=== PATIENT | male | born 1960 | race Caucasian/White ===

== ENCOUNTER 2017-11-09 09:25 | Emergency (ER) | payer OTHER ==
--- NOTE | 2017-11-09 09:32 | ED Physician Documentation ---
PD HPI CHEST PAIN - Stated complaint Stated Complaint: CHEST TIGHTNESS - History obtained from History obtained from: Patient, Family - History of Present Illness Timing - onset: How many hours ago (1-2) Timing - onset during: Light activity Timing - duration: Hours (1-2) Timing - details: Abrupt onset (while mowing the lawn), Still present Quality: Tightness, Aching, Pain Location: Substernal, Left chest Radiation: No: Jaw, Neck, Back, Abdominal Improved by: Rest Worsened by: No: Inspiration, Movement, Palpation Associated symptoms: Shortness of air, Nausea. No: Feeling faint / dizzy, Palpitations, Cough Similar symptoms before: No diagnosis (had similar but less severe symptoms 2 days ago while mowing, and it went away with rest. [place] okay yesterday.) Recently seen: Not recently seen Review of Systems Constitutional: denies: Fever, Chills Nose: denies: Rhinorrhea / runny nose, Congestion Throat: denies: Sore throat Cardiac: reports: Chest pain / pressure. denies: Palpitations, Pedal edema, Calf pain Respiratory: denies: Dyspnea, Cough, Wheezing GI: reports: Nausea. denies: Abdominal Pain, Vomiting, Diarrhea : denies: Dysuria Skin: denies: Rash, Lesions Musculoskeletal: denies: Neck pain, Back pain Neurologic: reports: Generalized weakness. denies: Focal weakness, Numbness, Near syncope Psychiatric: denies: Insomnia Immunocompromised: denies: Immunocompromised PD PAST MEDICAL HISTORY - Past Medical History Cardiovascular: Hypertension, High cholesterol Respiratory: None Neuro: None Endocrine/Autoimmune: None - Present Medications Home Medications: Ambulatory Orders Medication Instructions Recorded Confirmed Aspirin 11/09/17 Lisinopril 11/09/17 Simvastatin [Zocor] 11/09/17 - Allergies Allergies/Adverse Reactions: Allergies Allergy/AdvReac Type Severity Reaction Status Date / Time No Known Drug Allergies Allergy Verified 11/09/17 09:34 - Family History Family history: reports: CAD PD ED PE NORMAL - Vitals Vital signs reviewed: Yes - General General: Alert and oriented X 3, Well developed/nourished, Other (apears uncomfortable) - HEENT HEENT: Moist mucous membranes, Pharynx benign - Neck Neck: Supple, no meningeal sign, No adenopathy - Cardiac Cardiac: RRR, No murmur - Respiratory Respiratory: Clear bilaterally, Other (no chestwall tenderness) - Abdomen Abdomen: Soft, Non tender - Back Back: No CVA TTP - Derm Derm: Normal color, Warm and dry - Extremities Extremities: No deformity, No tenderness to palpate, Normal ROM s pain, No edema , No calf tenderness / cord - Neuro Neuro: Alert and oriented X 3, No motor deficit, Normal speech - Psych Psych: Normal mood, Normal affect Results - Vitals Vitals: Vital Signs - 24 hr 11/09/17 11/09/17 09:29 10:35 Temperature 35.7 C L Heart Rate 69 75 Respiratory 18 18 Rate Blood Pressure 140/99 H 108/80 O2 Saturation 98 95 Oxygen O2 Source Room air - EKG (time done) 09:30 Rate: Rate (enter#) (63) Rhythm: NSR [place]: Normal Intervals: Normal CA QRS: Normal Ischemia: Normal ST segments. No: ST elevation c/w ischemia, ST depression, Hyperacute T waves Compare to prior EKG: Old EKG unavailable Computer interpretation: Agree with computer repeat Rhythm: NSR Intervals: Normal CA QRS: Normal Ischemia: ST elevation c/w ischemia (inferior leads), ST depression (anterior) Compare to prior EKG: Changed from prior EKG - Labs Labs: Laboratory Tests 11/09/17 11/09/17 11/09/17 09:45 09:45 09:45 WBC 6.8 RBC 5.43 Hgb 15.7 Hct 46.6 MCV 85.9 MCH 29.0 MCHC 33.8 RDW 14.5 Plt Count 293 MPV 7.0 L Neut # 4.1 Lymph # 2.0 [place] # 0.6 Eos # 0.1 Baso # 0.1 Absolute Nucleated RBC 0.00 Nucleated RBC % 0.0 Sodium 137 Potassium 3.8 Chloride 104 Carbon Dioxide 26 Anion Gap 7.0 BUN 15 Creatinine 1.0 Estimated GFR (MDRD) 78 L Glucose 154 H Calcium 9.1 Total Bilirubin 0.4 AST 31 ALT 46 Alkaline Phosphatase 77 Troponin I 0.04 Total Protein 7.7 Albumin 4.6 Globulin 3.1 Albumin/Globulin Ratio 1.5 Lipase 23 - Rads (name of study) chest Radiology: Prelim report reviewed (no acute findings on chest) PD MEDICAL DECISION MAKING - ED course Complexity details: re-evaluated patient (having increased pain from 11/21 to and appears sweaty. Repeat ECG showing now evident inferior ST eelvations with repicprocal changes anteriorly. ), considered differential (Concern for ACS with initial history and symptoms. He had increase in chest pain soon after and repeat ECG showing inferior STEMI. Given Morphine, Nitro, ASA with improvement in his pain. Also given Plavix and started Heparin. ), d/w patient, d/w advanced manufacturing consultant (Dr. Fonseca, ED MD at [facility], who accepts [facility] for STEMI protocol. ) - Critical Care Time(min): 30 Time Includes: Direct patient care, Reassess patient, Document care, Coordinate care, Medical consult Data interpretation: Labs, CXR Procedures excluded from critical care time: EKG Departure - Departure Disposition: 02 Transfer Acute Care Hosp Clinical Impression: ST elevation myocardial infarction (STEMI) of inferior wall Chest pain Qualifiers: Chest pain type: precordial pain Qualified Code(s): R07.2 - Precordial pain Condition: Serious Record reviewed to determine appropriate education?: Yes
[2017-11-09 09:51] LABS: BASOPHILS # (AUTO) 0.1 10^3/uL (0.0-0.1); BASOPHILS % (AUTO) 0.7 %; EOSINOPHILS # (AUTO) 0.1 10^3/uL (0.0-0.7); EOSINOPHILS % (AUTO) 1.3 %; HGB - HEMOGLOBIN 15.7 g/dL (14.0-18.0); LYMPHOCYTES % (AUTO) 29.8 %; MEAN CORPUSCULAR HGB CONC 33.8 g/dL (32.0-36.0); MEAN CORPUSCULAR VOLUME 85.9 fL (80.0-94.0); MONOCYTES # (AUTO) 0.6 10^3/uL (0.0-1.0); MONOCYTES % (AUTO) 8.3 %; NEUTROPHILS # (AUTO) 4.1 10^3/uL (1.5-6.6); NEUTROPHILS % (AUTO) 59.9 %; PLT - PLATELET COUNT 293 10^3/uL (130-450); RED BLOOD COUNT 5.43 10^6/uL (4.70-6.10); RED CELL DISTRIBUTION WIDTH 14.5 % (12.0-15.0); WHITE BLOOD COUNT 6.8 x10^3/uL (4.8-10.8)
[2017-11-09 10:05] LABS: ALBUMIN 4.6 g/dL (3.2-5.5); ALBUMIN/GLOBULIN RATIO 1.5 (1.0-2.2); BILIRUBIN,TOTAL 0.4 mg/dL (0.2-1.0); CALCIUM 9.1 mg/dL (8.5-10.3); TOTAL PROTEIN 7.7 g/dL (6.7-8.2)
[2017-11-09] MEDS ORDERED: MAG HYDROX/AL HYDROX/SIMETH 30 ML UDC PO STA (10:09)
[2017-11-09] MEDS ORDERED: MORPHINE 10 MG/ML VIAL IVP STA (10:09)
[2017-11-09] MEDS ORDERED: ONDANSETRON 4 MG/2 ML VIAL IVP STA (10:09)
[2017-11-09] MEDS ORDERED: NITROGLYCERIN SL 0.4 MG TABLET SL STA (10:09)
[2017-11-09] MEDS ORDERED: LIDOCAINE VISCOUS 2% 15 ML UDC MM STA (10:09)
[2017-11-09] MEDS ORDERED: HEPARIN 5,000 UNIT/ML VIAL IVP STA (10:23)
[2017-11-09] MEDS ORDERED: CLOPIDOGREL 300 MG TABLET PO STA (10:23)
[2017-11-09] MEDS ORDERED: HEPARIN 25000UNITS/500ML (D5W) 25,000 UNIT/500 ML BAG IV STA (10:23)
[2017-11-09] MEDS ORDERED: NITROGLYCERIN 2% PASTE TOP STA (10:26)
--- NOTE | 2017-11-09 10:26 | XRAY Report ---
EXAM: CHEST RADIOGRAPHY EXAM DATE: 11/09/2017 09:56 AM. CLINICAL HISTORY: Chest pain. Left upper chest tightness. COMPARISON: None. TECHNIQUE: 2 views. FINDINGS: Lungs/Pleura: No focal opacities evident. No pleural effusion. No pneumothorax. Normal volumes. Mediastinum: Probable aortic arch atherosclerotic calcification. Other: None. IMPRESSION: No consolidation evident. [facility] Referring Provider Line: [phone] SITE ID: [id number]
[2017-11-09] MEDS ORDERED: SODIUM CHLORIDE 0.9% 500 ML IV ONE (10:27)
[2017-11-09] MEDS ORDERED: ASPIRIN CHEW 81 MG TABLET ONE (10:33)
[2017-11-09] MEDS ORDERED: HEPARIN 5,000 UNIT/ML VIAL ONE (10:34)
[2017-11-09] MEDS ORDERED: HEPARIN 25000UNITS/500ML (D5W) 25,000 UNIT/500 ML BAG IV ONE (10:34)
[2017-11-09] MEDS ORDERED: CLOPIDOGREL 300 MG TABLET PO ONE (10:34)
[2017-11-09 10:36] VITALS: BP 108/80
[2017-11-09] MEDS ORDERED: ASPIRIN CHEW 81 MG TABLET PO STA (10:36)
== END 2017-11-09 10:46 | disposition short-term general hospital (02) ==
LOC: ED 09:25
DX: I21.19 ST elevation (STEMI) myocardial infarction involving other coronary artery of inferior wall (principal); R07.2 Precordial pain; I10 Essential (primary) hypertension; E78.00 Pure hypercholesterolemia, unspecified; Z82.49 Family history of ischemic heart disease and other diseases of the circulatory system
CPT/HCPCS: 36415; 71046; 80053; 83690; 84484; 85025; 93005; 96365; 96375; 96376; 99284; 99291; A9270

== ENCOUNTER 2017-11-09 10:46 | Outpatient (CLI) | payer OTHER | END 2017-11-09 10:47 | disposition short-term general hospital (02) | LOC: EMS 10:46 | PROVIDERS: ATTEND Surgery | DX: R07.9 Chest pain, unspecified (principal) | CPT/HCPCS: A0425; A0427 ==

== ENCOUNTER 2021-11-26 00:47 | Emergency (ER) | payer OTHER ==
[2021-11-26 01:36] LABS: BASOPHILS % (AUTO) 0.3 %; EOSINOPHILS # (AUTO) 0.2 10^3/uL (0.0-0.7); EOSINOPHILS % (AUTO) 2.6 %; HCT - HEMATOCRIT 41.7 % (42.0-52.0); LYMPHOCYTES # (AUTO) 2.7 10^3/uL (1.5-3.5); LYMPHOCYTES % (AUTO) 38.6 %; MEAN CORPUSCULAR HEMOGLOBIN 29.2 pg (27.0-31.0); MEAN CORPUSCULAR HGB CONC 33.6 g/dL (32.0-36.0); MEAN CORPUSCULAR VOLUME 87.1 fL (80.0-94.0); MEAN PLATELET VOLUME 9.1 fL (7.4-11.4); MONOCYTES # (AUTO) 0.6 10^3/uL (0.0-1.0); MONOCYTES % (AUTO) 9.2 %; NEUTROPHILS # (AUTO) 3.4 10^3/uL (1.5-6.6); NEUTROPHILS % (AUTO) 49.3 %; PLT - PLATELET COUNT 309 10^3/uL (130-450); RED BLOOD COUNT 4.79 10^6/uL (4.70-6.10); RED CELL DISTRIBUTION WIDTH 13.5 % (12.0-15.0)
[2021-11-26 01:50] LABS: ALBUMIN 4.2 g/dL (3.2-5.5); ALBUMIN/GLOBULIN RATIO 1.5 (1.0-2.2); BILIRUBIN,TOTAL 0.3 mg/dL (0.2-1.0); CALCIUM 9.2 mg/dL (8.5-10.3); POTASSIUM 3.8 mmol/L (3.5-5.0)
--- NOTE | 2021-11-26 01:54 | XRAY Report ---
PROCEDURE: Chest 1 View X-Ray INDICATIONS: Chest pain TECHNIQUE: One view of the chest was acquired. COMPARISON: Prior two-view chest 11/09/2017 reviewed. FINDINGS: Surgical changes and devices: None. Lungs and pleura: No pleural effusions or pneumothorax. Lungs are clear. Mediastinum: Mediastinal contours appear normal. Heart size is normal. Bones and chest wall: No suspicious bony lesions. Overlying soft tissues appear unremarkable. IMPRESSION: Normal for age, source of current symptoms is not seen. Reviewed by: Farshad Navarro MD on 11/26/2021 1:53 AM PDT Approved by: Farshad Navarro MD on 11/26/2021 1:53 AM PDT Station ID: [id number]
--- NOTE | 2021-11-26 03:06 | ED Physician Documentation ---
PD HPI DYSPNEA - Stated complaint Stated Complaint: SOA - Chief complaint Chief Complaint: Resp - History obtained from History obtained from: Patient - Additional information Additional information: Patient is a 61-year-old male with a history significant for coronary artery disease with 3 previous stents presenting for evaluation ofFeeling something stuck in his throat since 11:30 PM. Patient had chicken and Porridge for dinner. He was feeling well until Later this evening and felt that he had something in his throat.He tried to lay back and go to sleep but this made him feel short of breath. His had him eat a banana to try and clear something from his throat and he was able to do so. He reports that the sensation in his throat has cleared and he no longer feels short of breath. He denies ever having any episodes of chest pain.He denies nausea or vomiting.He denies coughing, fever, congestion.He denies having any further trouble swallowing. He denies any previous history of similar symptoms.Patient's encouraged him to come to the emergency department for evaluation given his previous cardiac history and his complaint of feeling short of breath. Patient reports that shortness of breath only lasted for a minute or 2 and has not reoccurred. Review of Systems Constitutional: denies: Fever Throat: reports: Other (Something stuck in throat) Cardiac: denies: Chest pain / pressure Respiratory: reports: Dyspnea. denies: Cough GI: denies: Abdominal Pain : denies: Dysuria Skin: denies: Rash Neurologic: denies: Headache PD PAST MEDICAL HISTORY - Past Medical History Past Medical History: Yes Cardiovascular: Hypertension, High cholesterol, [place] Respiratory: None Endocrine/Autoimmune: None Musculoskeletal: Gout - Past Surgical History Past Surgical History: No Cardiovascular: Coronary stent - Present Medications Home Medications: Ambulatory Orders Medication Instructions Recorded Confirmed Aspirin 11/09/17 Simvastatin [Zocor] 11/09/17 lisinopriL [Lisinopril] 2.5 mg 11/09/17 Metoprolol Succinate [Toprol Xl] 25 mg PO 11/26/21 Prasugrel HCl 10 mg PO 11/26/21 Sildenafil Citrate [Viagra] 11/26/21 allopurinoL [Zyloprim] 11/26/21 - Allergies Allergies/Adverse Reactions: Allergies Allergy/AdvReac Type Severity Reaction Status Date / Time No Known Drug Allergies Allergy Verified 11/26/21 01:00 - Social History Does the pt smoke?: No Smoking Status: Never smoker Does the pt drink ETOH?: Yes Does the pt have substance abuse?: No - Immunizations Immunizations are current?: Yes - POLST Patient has POLST: No PD ED PE NORMAL - General General: Alert and oriented X 3, No acute distress, Well developed/nourished - HEENT HEENT: Atraumatic, Moist mucous membranes, Pharynx benign - Neck Neck: Supple, no meningeal sign - Cardiac Cardiac: RRR, No murmur, Strong equal pulses, Other (No crepitus To neck or chest wall) - Respiratory Respiratory: No respiratory distress, Clear bilaterally - Abdomen Abdomen: Normal bowel sounds, Soft, Non tender - Derm Derm: Warm and dry - Extremities Extremities: No edema - Neuro Neuro: Normal speech - Psych Psych: Normal mood Results - Vitals Vitals: Vital Signs - 24 hr 11/26/21 11/26/21 11/26/21 00:50 01:07 03:09 Temperature 36.0 C L Heart Rate 72 68 65 Respiratory 18 18 17 Rate Blood Pressure 148/99 H 127/86 H 124/80 O2 Saturation 98 99 98 11/26/21 03:15 Temperature 36.6 C Heart Rate 80 Respiratory 17 Rate Blood Pressure 124/84 H O2 Saturation 98 Oxygen O2 Source Room air - EKG (time done) 0101 Rate: Rate (enter#) (64) Rhythm: NSR Intervals: LBBB Ischemia: T wave inversion (Leads II, III, aVF and V6) Compare to prior EKG: Other (Records obtained from [facility], no changes when compared with EKG from May 08, 2021) 0242 Rate: Rate (enter#) (53) Rhythm: Sinus bradycardia Intervals: LBBB Ischemia: T wave inversion (2, 3, aVF, V6) Compare to prior EKG: Unchanged from prior EKG - Labs Labs: Laboratory Tests 11/26/21 11/26/21 11/26/21 01:23 01:23 01:23 WBC 7.0 RBC 4.79 Hgb 14.0 Hct 41.7 L MCV 87.1 MCH 29.2 MCHC 33.6 RDW 13.5 Plt Count 309 MPV 9.1 Neut # (Auto) 3.4 Lymph # (Auto) 2.7 [place] # (Auto) 0.6 Eos # (Auto) 0.2 Baso # (Auto) 0.0 Absolute Nucleated RBC 0.00 Nucleated RBC % 0.0 Sodium 137 Potassium 3.8 Chloride 105 Carbon Dioxide 24 Anion Gap 8.0 BUN 22 H Creatinine 1.0 Estimated GFR (MDRD) 76 L Glucose 135 H Calcium 9.2 Total Bilirubin 0.3 AST 31 ALT 43 Alkaline Phosphatase 78 Troponin I High Sens 4.9 Total Protein 7.0 Albumin 4.2 Globulin 2.8 Albumin/Globulin Ratio 1.5 Lipase 38 11/26/21 02:35 WBC RBC Hgb Hct MCV MCH MCHC RDW Plt Count MPV Neut # (Auto) Lymph # (Auto) [place] # (Auto) Eos # (Auto) Baso # (Auto) Absolute Nucleated RBC Nucleated RBC % Sodium Potassium Chloride Carbon Dioxide Anion Gap BUN Creatinine Estimated GFR (MDRD) Glucose Calcium Total Bilirubin AST ALT Alkaline Phosphatase Troponin I High Sens 4.5 Total Protein Albumin Globulin Albumin/Globulin Ratio Lipase PD MEDICAL DECISION MAKING - ED course ED course: Patient presenting for evaluation of shortness of breath that occurred as he had a foreign body sensation in his throat. Both of these symptoms have since resolved. Patient has no signs of esophageal obstruction and is Swallowing without difficulty. EKG was reviewed. Old records were obtained from [facility] and current EKGs Do not demonstrate any acute changes. High-sensitivity troponin is negative x2. Patient has been without symptoms since being in the emergency department. Do not think his symptoms are suggestive then of ACS, pulmonary embolism or dissection. Patient and are aware of strict return precautions. He has a cardiology appointment already scheduled for December 12. 012 - No symptoms, feeling well, no trouble swallowing. 0300 - Remains symptom free. Departure - Departure Disposition: 01 Home, Self Care Clinical Impression: Swallowing pain Condition: Stable Instructions: ED Foreign Body Esophageal Rslv Comments: Brian - You You were evaluated for an abnormal feeling when swallowing. This may have been due to a pill or piece of food being caught in the throat but fortunately it appears that it has resolved. Because of your cardiac history your heart was evaluated and at this time there are no signs of a heart attack. Your chest x-ray was also clear. Please Start with a soft food diet in the morning and advance to a regular diet if you are having no trouble swallowing. But anytime your Symptoms return or you have any new symptoms such as chest pain please return to the emergency department.
[2021-11-26 03:18] VITALS: BP 124/84
== END 2021-11-26 03:15 | disposition home or self-care (01) ==
LOC: ED 00:47
DX: R13.10 Dysphagia, unspecified (principal); I10 Essential (primary) hypertension
CPT/HCPCS: 36415; 80053; 83690; 84484; 85025; 93005; 99282; 99284

== ENCOUNTER 2022-10-04 23:41 | Emergency (ER) | payer OTHER ==
--- NOTE | 2022-10-04 23:55 | ED Physician Documentation ---
PD HPI HEENT - Stated complaint Stated Complaint: NOSE BLEED - Chief complaint Chief Complaint: Heent - History obtained from History obtained from: Patient - Additional information Additional information: HPI from patient. Patient complains of atraumatic right sided nosebleed that began at approximately 9 PM tonight while at home at rest watching television. He has had occasional nosebleeds but has never had to seek medical attention for nosebleed in the past. He denies pain. His medication list does include pressor gel which is an antiplatelet agent. PD PAST MEDICAL HISTORY - Past Medical History Cardiovascular: Hypertension, High cholesterol, [place] Respiratory: None Endocrine/Autoimmune: None Musculoskeletal: Gout - Past Surgical History Past Surgical History: No Cardiovascular: Coronary stent - Present Medications Home Medications: Ambulatory Orders Medication Instructions Recorded Confirmed Aspirin 81 mg PO DAILY 11/09/17 lisinopriL [Lisinopril] 2.5 mg PO DAILY 11/09/17 Metoprolol Succinate [Toprol Xl] 25 mg PO DAILY 11/26/21 Prasugrel HCl 10 mg PO DAILY 11/26/21 Sildenafil Citrate [Viagra] 25 mg PO DAILY PRN 11/26/21 allopurinoL [Zyloprim] 100 mg PO DAILY 11/26/21 - Allergies Allergies/Adverse Reactions: Allergies Allergy/AdvReac Type Severity Reaction Status Date / Time No Known Drug Allergies Allergy Verified 10/04/22 23:52 - Social History Does the pt smoke?: No Smoking Status: Never smoker Does the pt drink ETOH?: Yes Does the pt have substance abuse?: No - Immunizations Immunizations are current?: Yes - POLST Patient has POLST: No PD ED PE NORMAL - Vitals Vital signs reviewed: Yes - General General: Alert and oriented X 3, No acute distress, Well developed/nourished - HEENT HEENT: Pharynx benign PD ED PE EXPANDED - HEENT HEENT: Right nares epsitaxis (There is right nare epistaxis from a visualized punctate source on the anterior septum). No: Left nares epistaxis Results - Vitals Vitals: Oxygen O2 Source Room air Procedures - Epistaxis - Minor Site: Right, Anterior Preparation: Afrin, Lidocaine Treatment: Silver Nitrate Other: Observed - no bleeding, Pt tolerated well PD Medical Decision Making - ED course Complexity details: considered differential, d/w patient ED course: source of anterior right nare (septum) bleeding is directly visualized and ca uterized with silver nitrate. He is the observed for 20 minutes in ED without recurrence of bleeding. Return precautions discussed Departure - Departure Disposition: 01 Home, Self Care Clinical Impression: Epistaxis Condition: Good Instructions: ED Nosebleed Discharge Date/Time: 10/05/22 00:49
[2022-10-04] MEDS ORDERED: LIDOCAINE VISCOUS 2% 15 ML UDC MM STA (23:56)
[2022-10-04] MEDS ORDERED: OXYMETAZOLINE HCL 100 SPRAYS BOTTLE NAS STA (23:56)
[2022-10-05] MEDS ORDERED: SILVER NITRATE APPLICATOR TOP STA (00:09)
[2022-10-05 00:43] VITALS: BP 137/83
== END 2022-10-05 00:49 | disposition home or self-care (01) ==
LOC: ED 23:41
DX: R04.0 Epistaxis (principal); I10 Essential (primary) hypertension; E78.00 Pure hypercholesterolemia, unspecified; Z79.82 Long term (current) use of aspirin; Z79.899 Other long term (current) drug therapy
CPT/HCPCS: 30901; 99282; 99283; A9270